=== PATIENT | female | born 1960 | race Caucasian/White ===

== ENCOUNTER 2022-05-17 12:30 | Outpatient (RCR) | payer OTHER, SELFPAY ==
--- NOTE | 2022-03-02 13:32 | HP.PTEVAL_ITS ---
Patient's Visit Information DIANNE BAZAN is a 61 year old F referred to Physical Therapy by MARKELL HARO with a diagnosis of LUMBAR DDD. Date of Evaluation: 03/02/22 Physical Therapist: Madelyn De La Cruz PT, Cert MDT - Visit Plan Frequency: 2-3x /Week Duration: 4-6 Weeks Plan: AQUATIC THERAPY FOR PAIN RELIEF, POSTURE CORRECTION/STRENGTHENING, INSTRUCTION IN APPROPRIATE BODY MECHANICS AND ACTIVITY MODIFICATIONS. DLS STARTING WITH A NEUTRAL SPINE PROGRESSING ROM TOLERATED. KAILASH LE ROM, STRETCHING AND STRENGTHENING. HEP INSTRUCTION. - Subjective Work/Leisure: WORKS FOR [employer] AND IN THE [employer]. Present symptoms: PATIENT REPORTS SHE FEELS REALLY TIGHT IN HER BACK AND HIPS. INTERMITTENT LBP. PATIENT DENIES KAILASH LE PAIN, NUMBNESS AND TINGLING. Present since: ABOUT 15 YEARS AGO OR MORE. Pain Scale: WORSE 4/10, LEAST 0/10. Currently: 0/10. Commenced as a result of: NO APPARENT REASON. Symptoms at onset: LOW BACK PAIN. Worse: PUTTING SHOES ON IN SITTING. ANYTHING BENDING OVER LIKE TO PICK SOMETHING UP OFF THE FLOOR. LIFTING - TRIED LIFTING HALF OF A MILK CRATE (FULL IS 50 X 8OZ) AGAIN TODAY AND GOT A LOT OF BACK PAIN. Better: SITTING STRAIGHT UP WITH BACK SUPPORT OR LYING DOWN. Disturbed sleep: NO. Previous history/Previous treatment: MOSTLY SELF TREATED PRIOR TO BACK SURGERY. PRIOR TO SX COULDN'T STAND OR WALK AND BOTH FEET WERE NUMB AND RIGHT LE ALWAYS NUMB. Treatment this episode: OCT [address] HARO. STARTED PT END OF OCTOBER AT [facility] 2X'S A WK X 4 WKS UNTIL END OF NOVEMBER. PATIENT REPORTS SHE THINKS HER THERAPY WAS TOO EASY AND IN AND JANUARY SHE REALLY DIDN'T DO A LOT. SHE REPORTS SHE CALLED HER SURGEON RECENTLY AND ASKED FOR MORE PT TO TRY TO GET STRONGER AND MORE FLEXIBLE. Coughing/sneezing/straining: NEGATIVE. Gait: NORMAL. Bowel or Bladder Dysfunction: NO. Accidents: NO. Unexplained weight loss: NO. Imaging: PATIENT REPORTS THAT FOLLOW UP X-RAYS AFTER SURGERY LOOKED GOOD. PMH/Recent major surgery: HYPOTHYROIDISM, KAILASH KNEE MENISCUS SX'S. OTHER: RESTRICTIONS: NO LIFTING > 25 LBS. AVOID unnecessary BENDING. - Objective Sitting/Standing Posture: POOR. SLOUCHED. ABLE TO PARTIALLY CORRECT POSTURE BUT NOT MAINTAIN. Active Correction of posture: WORSE. Other Observations: INDEP GAIT. INDEP TRANSFERS SIT TO STAND WITHOUT UE ASSIST. Sensory deficit: KAILASH LE LIGHT TOUCH SENSATION IS GROSSLY INTACT AND SYMMETRICAL. ROM deficit: TIGHT KAILASH HIP ROTATORS, HIP FLEXORS, HS'S AND GASTROC SOLEUS COMPLEX'S. Motor deficit: KAILASH LE'S 5/5 EXCEPT HIPS 4/5. Reflexes: UNABLE TO ELICIT RIGHT LE DTR'S. LLE 2/3. Dural Signs: NEGATIVE KAILASH LE'S. Lumbar mvmt loss: flex - MOD. ext - CARMEN. R SG - MOD. L SG - MOD. PATIENT COMPLAINT OF INCREASED LOW BACK PAIN WITH LUMBAR ROM TESTING ALL PLANES ESPECIALLY FORWARD BENDING. Core strength: POOR. Palpation: TENDERNESS AND INCREASED MUSCLE TONE THROUGHOUT LUMBAR REGIONS. NO ACUTE HIP OR BUTTOCK TENDERNESS. TREATMENT: NEUROMUSCULAR REEDUCATION - RETRAINING OF MVMT AND POSTURE FOR SITTING, LYING AND STANDING ACTIVITIES. - Balance/Special Test Scores Oswestry Low Back Score: 8 - Goals Goal 1:: DECREASE C/O LOW BACK AND KAILASH LE SX'S. Goal Time Frame: 4-6 Weeks Goal 2:: IMPROVE LIFTING, SITTING, STANDING, AND WORK/HOMEMAKING FUNCTION Goal Time Frame: 4-6 Weeks Goal 3:: INSTRUCT IN PROPHYLAXIS Goal Time Frame: 4-6 Weeks - Anticipated Interventions Patient/Client Instruction: Educate patient on: Condition, Plan of Care, Risk Factors For the Purpose of:: To improve self management Therapeutic Exercise to Include: Strength training, Body mechanics, Postural training, Neuromotor development, Dynamic Lumbar Stabilization For the Purpose of:: To decrease pain, To improve muscle performance and motor function, To increase tolerance to activity/condition/position, To improve ability of physical actions for home/community/work/leisure Thank you for the opportunity to evaluate your patient. For Medicare and Medicare HMO plans, please review the plan of care and approve it. It will need to be FAXED BACK to us at [phone] for Medicare purposes. For Medicare only, by signing this I certify the plan of care. Please let me know if there are questions or concerns regarding this plan of care. Physician Signature: Date:
--- NOTE | 2022-03-23 14:04 | HP.PTREVAL_ITS ---
MARKELL HARO, It has been my pleasure to treat DIANNE BAZAN over the last 10 visits for LUMBAR DDD. Please see the progress note below for an update on the physical therapy plan of care! Subjective: PATIENT REPORTS SHE IS improving BUT SHE FEELS LIKE SHE HAS A LONG WAY TO GO. SHE REPORTS SHE IS WALKING MORE AND IT FLARES UP HER RIGHT LBP. PATIENT REPROTS SHE IS FEELING MORE MOBILE. SHE STATES SHE ISN'T STIFF WHEN SHE WALKS AND TURNS AND IS JUST FEELING MORE LIKE HER SELF AND needing to be LESS cautious. Objective/Function: PATIENT WAS SEEN TODAY FOR RE-ASSESSMENT OF PROGRESS TOWARD THE SET PT GOALS AND THE NEED FOR FURTHER PHYSICAL THERAPY VS READINESS FOR DISCHARGE. PATIENT IS MAKING SLOW PROGRESS WITH PT AND IS. A GOOD CANDIDATE TO CONTINUE AQUATIC THERAPY BASED ON PROGRESS MADE AND ROOM FOR FUTHER IMPROVMENT. PATIENT IS AGREEABLE. UPON EXAM TODAY: Lumbar mvmt loss: flex - MOD. ext - Mod. R SG - MOD. L SG - MOD. Other: KAILASH HIPS ARE STILL VERY TIGHT RIGHT > LEFT AND TESTING HIP ROM PROVOKES PAIN IN GROIN AND LATERAL HIP REGIONS. PATIENT TOLERATED NEW STRETCHES WELL BUT NEEDED A LOT OF CUEING TO DO IN PAINFREE ROM. Plan Plan: CONTINUE 3X'S A WK X 10 VISITS: AQUATIC THERAPY FOR PAIN RELIEF, POSTURE CORRECTION/STRENGTHENING, INSTRUCTION IN APPROPRIATE BODY MECHANICS AND ACTIVITY MODIFICATIONS. DLS STARTING WITH A NEUTRAL SPINE PROGRESSING ROM TOLERATED. KAILASH LE ROM, STRETCHING AND STRENGTHENING. HEP INSTRUCTION. [ End ] Balance/Gait/Functional tests - Balance/Special Test Scores Oswestry Low Back Score: 6 Goals Goal 1:: DECREASE C/O LOW BACK AND KAILASH LE SX'S. Goal Time Frame: 4-6 Weeks Goal Progress: Progressing Goal 2:: IMPROVE LIFTING, SITTING, STANDING, AND WORK/HOMEMAKING FUNCTION Goal Time Frame: 4-6 Weeks Goal Progress: Progressing Goal 3:: INSTRUCT IN PROPHYLAXIS Goal Time Frame: 4-6 Weeks Goal Progress: Progressing Anticipated Interventions Patient/Client Instruction: Educate patient on: Condition, Plan of Care, Risk Factors For the Purpose of:: To improve self management Therapeutic Exercise to Include: Strength training, Body mechanics, Postural training, Neuromotor development, Dynamic Lumbar Stabilization For the Purpose of:: To decrease pain, To improve muscle performance and motor function, To increase tolerance to activity/condition/position, To improve ability of physical actions for home/community/work/leisure Please do not hesitate to contact me at [phone] by phone or Fax: if you have questions or concerns regarding this new plan of care! Sincerely, Madelyn De La Cruz PT, Cert MDT
--- NOTE | 2022-04-20 14:33 | HP.PTREVAL ---
MARKELL HARO, It has been my pleasure to treat DIANNE BAZAN over the last 17 visits for LUMBAR DDD. Please see the progress note below for an update on the physical therapy plan of care! Subjective: WORKING [employer] FULL DUTY AND HAS NOT MISSED ANY WORK. PATIENT REPORTS SHE WAS DOING REALLY WELL UNTIL HER SON MOVED ABOUT 2 WKS AGO. SHE REPORTS SHE WAS DOING SOME CLEANING FOR HIM THAT INVOLVED BENDING AND REACHING AND EVEN GETTING DOWN ON HER KNEES. SHE REPORTS SHE COULD REALLY FEEL IT THAT FOLLOWING WEEK BUT IT SETTLED BACK DOWN AGAIN BUT NOT COMPLETELY. FOLLOW UP PENDING WITH SURGEON 04/27/22 (DR. HARO AT [facility]). PATIENT FEELS LIKE THE POOL IS REALLY HELPING. STATES SHE FEELS GOOD DURING AND AFTER THE EX SESSIONS. REPORTS SHE HAS REALLY INCREASED HER WALKING WITHOUT INCREASED PAIN. WALKING ABOUT 45 MIN A DAY NOW AND STATES SHE COULD BARELY WALK AT ALL BEFORE SURGERY. Objective/Function: PATIENT WAS SEEN TODAY FOR RE-ASSESSMENT OF PROGRESS TOWARD THE SET PT GOALS AND THE NEED FOR FURTHER PHYSICAL THERAPY VS READINESS FOR DISCHARGE. PATIENT IS MAKING GOOD PROGRESS TOWARD ALL PT GOALS AND IS A GOOD CANDIDATE TO CONTINUE PT BASED ON PROGRESS MADE AND ROOM FOR FURTHER IMPROVEMENT. PATIENT IS AGREEABLE. UPON EXAM TODAY: LUMBAR MVMT LOSS: FLEX - MOD. EXT - MOD. R SG - MOD. L SG - MOD. NO INCREASED LASTING PAIN WITH LUMBAR ROM TESTING ALL PLANES TODAY BUT PATIENT REPORTS INCRASED PAIN WITH MVMT ALL PLANES. KAILASH HIPS ARE STILL VERY TIGHT RIGHT > LEFT AND TESTING HIP ROM PROVOKES PAIN IN GROIN AND LATERAL HIP REGIONS. Plan Plan: CONTINUE PT TRANSITIONING FROM WATER TO LAND 2X'S A WK X 4-6 WKS FOR PAIN RELIEF, POSTURE CORRECTION/STRENGTHENING, EMPHASIS ON APPROPRIATE BODY MECHANICS AND ACTIVITY MODIFICATIONS. DLS STARTING WITH A NEUTRAL SPINE AND LUMBAR ROM TOLERATED. KAILASH LE ROM, STRETCHING AND STRENGTHENING. HEP INSTRUCTION. [ End ] Balance/Gait/Functional tests - Balance/Special Test Scores Oswestry Low Back Score: 8 Goals Goal 1:: DECREASE C/O LOW BACK AND KAILASH LE SX'S. Goal Time Frame: 4-6 Weeks Goal Progress: Progressing Goal 2:: IMPROVE LIFTING, SITTING, STANDING, AND WORK/HOMEMAKING FUNCTION Goal Time Frame: 4-6 Weeks Goal Progress: Progressing Goal 3:: INSTRUCT IN PROPHYLAXIS Goal Time Frame: 4-6 Weeks Goal Progress: Progressing Anticipated Interventions Patient/Client Instruction: Educate patient on: Condition, Plan of Care, Risk Factors For the Purpose of:: To improve self management Therapeutic Exercise to Include: Strength training, Body mechanics, Postural training, Neuromotor development, Dynamic Lumbar Stabilization For the Purpose of:: To decrease pain, To improve muscle performance and motor function, To increase tolerance to activity/condition/position, To improve ability of physical actions for home/community/work/leisure Please do not hesitate to contact me at [phone] by phone or if you have questions or concerns regarding this new plan of care! Sincerely, Madelyn De La Cruz, PT, Cert MDT
--- NOTE | 2022-05-17 12:59 | HP.PTDCSUM ---
It has been my pleasure to treat DIANNE BAZAN referred by MARKELL HARO, with the diagnosis of LUMBAR DDD for a total of 22 visit(s). Discharge Date: 05/17/22 Please see the following information for a summary of their discharge status. Subjective: PATIENT REPORTS HER RIGHT HIP/GROIN PAIN IS ALMOST GONE. I FEEL STRONGER AND THIS HAS DONE GREAT FOR ME. PATIENT REPORTS HER SURGICAL FOLLOW UP ABOUT 2 WKS AGO WENT WELL AND ALL OF HER RESTRICTIONS WERE LIFTED. Right LE Pain Intensity (Out of 10): 0 Low back Pain Intensity (Out of 10): 0 % Improvement: 90 Objective/Function: PATIENT WAS SEEN TODAY FOR RE-ASSESSMENT OF PROGRESS TOWARD THE SET PT GOALS AND THE NEED FOR FURTHER PHYSICAL THERAPY VS READINESS FOR DISCHARGE. ALL GOALS HAVE BEEN MET AND PATIENT IS APPROPRIATE FOR DISCHARGE TO [facility]. PATIENT IS AGREEABLE. UPON EXAM TODAY: Lumbar mvmt loss: flex - MOD. ext - Mod. R SG - MOD. L SG - MOD. Other: PATIENT CONTINUES TO HAVE KAILASH HIP TIGHTNESS BUT NO PAIN WITH TESTING TODAY AND PATIENT COMMUNICATES A GOOD UNDERSTANDING OF HOME STRETCHING AND REPOTS IT IS HELPING. PATIENT ALSO CONTINUES TO HAVE LB TIGHTNESS ALL PLANES BUT NO PAIN WITH TESTING TODAY AND IS TOLERATING STRETCHING WELL. CORE STRENGTH - FAIR Goal 1:: DECREASE C/O LOW BACK AND KAILASH LE SX'S. Goal Progress: Goal Met Goal 2:: IMPROVE LIFTING, SITTING, STANDING, AND WORK/HOMEMAKING FUNCTION Goal Progress: Goal Met Goal 3:: INSTRUCT IN PROPHYLAXIS Goal Progress: Goal Met Plan: 2X'S A WK X 4-6 WKS FOR PAIN RELIEF, POSTURE CORRECTION/STRENGTHENING, EMPHASIS ON APPROPRIATE BODY MECHANICS AND ACTIVITY MODIFICATIONS. DLS STARTING WITH A NEUTRAL SPINE AND LUMBAR ROM TOLERATED. KAILASH LE ROM, STRETCHING AND STRENGTHENING. HEP INSTRUCTION. [ End ] If there are questions or concerns regarding this patient's physical therapy, please feel free to call me at [phone]. Thank you for the referral of this patient. Sincerely, Madelyn De La Cruz, PT, Cert MDT Balance/Gait/Functional tests - Balance/Special Test Scores Oswestry Low Back Score: 0
== END 2022-05-17 19:00 | disposition home or self-care (01) ==
LOC: PT 12:30
PROVIDERS: PCP Nurse Practitioner Family
DX: M51.36 Other intervertebral disc degeneration, lumbar region (principal)
CPT/HCPCS: 97110; 97112; 97113; 97162; 97164; 97530

== ENCOUNTER → 2022-07-20 | Outpatient (CLI) | payer OTHER, SELFPAY ==
[2022-07-20 13:34] LABS: Anion Gap 8 (5-15); BUN 14 mg/dL (7-18); BUN/Creat Ratio 16.1 RATIO (10-20); Calcium,Total 9.8 mg/dL (8.5-10.1); Chloride 103 mmol/L (98-107); Creatinine, Serum 0.87 mg/dL (0.55-1.02); EST Glomerular Filtration Rate 71 mL/min (>60); Est Glom Filt Rate - Afr Amer 86 mL/min (>60); Glucose 125 mg/dL (74-106); Potassium 3.7 mmol/L (3.5-5.1); Sodium Level 141 mmol/L (136-145)
== END | disposition home or self-care (01) ==
LOC: LAB 12:44
PROVIDERS: PCP Nurse Practitioner Family; Visit Provider Physician Assistant Medical
DX: I47.1 Supraventricular tachycardia (principal)
CPT/HCPCS: 36415; 80048

== ENCOUNTER 2022-08-10 09:00 | Day surgery (SDC) | payer OTHER, SELFPAY ==
[2022-08-09 08:50] VITALS: BMI 35.8
--- NOTE | 2022-08-09 17:03 | HP.PCM_ITS ---
History and Physical Date of Admission: 08/10/22 Katherine Ledesma is a 61-year-old female with a history of supraventricular tachyarrhythmia.? She had presented in June 2019 with a narrow complex tachycardia which was noted to be a supraventricular tachycardia.? Vagal maneuvers did terminate this.? She was put on a beta-elisabeth and she has tolerated this.? During her OV in January 2020 she noted she has had a few episodes SVT with the longest lasting approximately 3 hours.? She tried all her maneuvers but there was no improvement. She was referred to EP. She did not pursue this d/t her concerns over the procedure. She was last in to see us in 05/2020. Pt notes that her palpitations when she was last in to see us were not a concern but have gradually resumed and have progressed.? She did talk to her PCP about this.? He did obtain an echo, this did demonstrate normal LV size with an estimated ejection fraction of 60 to 65%.? Wall motion normal with no regional wall motion abnormalities.? Normal diastolic function.? Mild aortic regurgitation.? RVSP 32 mmHg.? Pt sts her palpitations were doing okay until April.? She notes that her heart is racing and irregular.? She had a HM done at PCP office. HM did demonstrate 15 short runs of SVT, with 4% PACs and rare PVCs.? Patient would not like to pursue an EP referral for possible ablation. Allergies penicillin V Allergy (Verified 07/04/22 11:15) Hives Medications levothyroxine 137 mcg tablet 137 mcg PO DAILY 02/06/20 [History Confirmed 07/04/22] metoprolol succinate 50 mg tablet,extended release 24 hr 50 mg PO DAILY #60 tabs 02/06/20 [Rx Confirmed 07/04/22] multivitamin (Daily Multi-Vitamin tablet) 1 tab PO DAILY 06/15/20 [History Confirmed 07/04/22] PFSH Medical History? Anxiety and depression Hypothyroidism Obesity Paroxysmal supraventricular tachycardia Psoriasiform dermatitis Surgical History? History of History of carpal tunnel release History of hysterectomy History of knee surgery Family History? Father?? Heart disease ?? ? age 65 Social History?(Updated 06/15/20 @ 11:12 by Felicia LEE, PA) Smoking Status:? Never smoker ROS Const Const: Negative for fatigue, weakness, headache(s), frequent falls, excessive sweating, weight gain or weight loss Eyes Eyes: Negative for blind spots, loss of peripheral vision, transient loss of vision, blurry vision, change in vision or double vision ENT ENT: Negative for headache(s), dizziness, tinnitus, Nosebleed/epistaxis or balance problems Cardio Chest Pain: No Palpitations: Yes Edema: None Muscle aches with walking: None Resp Respiratory: Negative for SOB with activity, SOB at rest, SOB orthopnea\SOB lying down or Cough GI GI: Negative nausea, vomiting, heartburn, bloating, vomiting blood/hematemesis, bright, red blood in stools or black,tarry stools : Negative for hematuria Musc Musc: Negative for muscle aches/ myalgia, muscle weakness, joint pain or balance problems Skin Skin: Negative rash or wounds Neuro Neuro: Negative for dizziness, lightheadedness, near syncope, syncope, orthosta tic symptoms, frequent falls, headache(s), weakness, confusion, memory loss, restless legs, blurry vision or double vision Lon Hematologic/Lymphatic: Negative for easy bleeding or easy bruising Endo Endo: Negative for fatigue, cold intolerance, heat intolerance or excessive sweating Psych Psych: Negative for anxiety or depression Allergy Allergy/Immunology: Negative for rash Cardiology Exam Const Appearance: cooperative, healthy appearing, comfortable, no acute distress and well developed Orientation: alert, awake and oriented x3 Head Head: normal to inspection Ears: hearing grossly normal bilaterally Nose: external nose normal Face and Sinus: face symmetric Mouth: oral mucosae normal, lip normal and moist mucous membranes Eyes General: appearance normal, both eyes and all related structures Eyelids: eyelids normal Conjunctivae: conjunctivae normal Pupils: PERRL EOM: EOM intact bilaterally Neck Neck: normal visual inspection and trachea midline; Negative no JVD Carotids: Negative bruit Chest Chest inspection: normal inspection of the chest Auscultation: Bilateral: Clear to Auscultation Cardio Palpation: normal PMI Rate: regular rate Rhythm: regular rhythm Heart sounds: S1 normal and S2 normal; Negative rub, gallop or murmur GI GI: soft, no hepatosplenomegaly and bowel sounds present Neuro General: patient alert, patient awake, patient oriented x3 and CN's II-XI intact bilaterally Extremities Pulses: Normal: Right Posterior Tibial Pulse, Left Posterior Tibial Pulse, Right Radial Pulse and Left Radial Pulse Lower Extremity Edema: None: Bilateral Psych Psychological: normal affect Assessment & Plan Assessment/Plan (1) Paroxysmal supraventricular tachycardia: PLAN: Pt will undergo ablation, f/u will be based on findings.
[2022-08-10 09:24] LABS: Hematocrit 43.8 % (37-47); Hemoglobin 14.3 g/dL (12.0-15.0); Mean Corp Hgb Conc 32.6 g/dL (32-36); Mean Corpuscular Hgb 29.8 pg (27.0-32.0); Mean Corpuscular Volume 91.3 fL (81-99); Mean Platelet Vol. 9.3 fl (6.2-12.0); Platelet Count 248 K/mm3 (150-450); RBC Distribution Width CV 12.6 % (11.6-14.6); RBC Distribution Width SD 42.1 fl (35.1-43.9); White Blood Count 6.4 K/mm3 (4.4-11.0)
--- NOTE | 2022-08-10 12:55 | EX.ELECTROPH ---
Electrophysiology Report Electrophysiology Report Patient has a history of recurrent narrow complex tachycardia and here for catheter ablation. 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 After informed consent the right groin was prepped and draped in usual sterile manner, 1% lidocaine as well as intermittent boluses of Versed and fentanyl were used for sedation and analgesia. A 12 [place] Tri-Port was inserted in the femoral vein using the Seldinger technique through that sheath a 4 [place] catheter was placed in the high right atrium 1 was placed in the right ventricle and a 5 [place] deflectable catheter was placed in the his bundle region. The rhythm was sinus with a RI of 160 QRS of 85 and QT of 340. Sinus cycle length was 820 AH is 70 HV is 40 maximum SNRT is 1130C SNRT is 290 AV block cycle length is 390 VA block cycle length is 340 there is decremental and concentric retrograde conduction. There is no evidence of preexcitation. The AV node effective refractory period is 280 at 600 with dual AV node physiology Isuprel was then infused at 3 mics and then 5 mcg/min. Sinus cycle length is 480 AH is 55 HV is 4 0 AV block cycle length is 260 VA block cycle length is 240 there is decremental and concentric retrograde conduction the AV node effective refractory period is 220 at 450. There is no Duley AV node physiology. In the baseline state and during Isuprel both at 3 mcg and 5 mcg there is no inducible tachycardia. Given the documentation of a narrow complex tachycardia consistent with typical AV rayray reentrant tachycardia in the absence of any evidence for an accessory pathway I proceeded with an empiric slow pathway ablation using temperatur titration with 4mm tip. Mapping and pacing were completed from the CS os. I achieved junctional beats and at the end of the procedure there is no further dual AV node physiology. There were no complications. The patient was followed clinically through the [facility]. Sheaths were removed and hemostasis was obtained. There were no complications.
== END 2022-08-10 16:19 | disposition home or self-care (01) ==
PROVIDERS: PCP Nurse Practitioner Family; Referring Provider Internal Medicine Cardiovascular Disease; Visit Provider Internal Medicine Cardiovascular Disease
DX: I47.1 Supraventricular tachycardia (principal); E03.9 Hypothyroidism, unspecified
CPT/HCPCS: 36415; 85027; 93609; 93621; 93623; 93653; 99152; 99153; C1730; C1733; C1894; A4216

== ENCOUNTER 2024-08-22 09:30 | Outpatient (RCR) | payer OTHER, SELFPAY ==
--- NOTE | 2024-07-28 19:21 | HP.PTEVAL_ITS ---
Patient's Visit Information Visit Information Visit Information: DIANNE BAZAN is a 63 year old F referred to Physical Therapy by MARKELL HARO with a diagnosis of CERVICAL DDD AND RADICULOPATHY. Date of Evaluation: 07/25/24 Physical Therapist: Madelyn De La Cruz PT, Cert MDT Visit Plan Frequency: 2-3x /Week Duration: 4-6 Weeks Plan: MODALITIES NEEDED FOR PAIN AND INFLAMMATION. IF RESPONDS TO MANUAL TRACTION CONSIDER MECHANICAL. POSTURE CORRECTION/STRENGTHENING, INSTRUCTION IN APPROPRIATE BODY MECHANICS AND ACTIVITY MODIFICATIONS. KAILASH UE ROM, STRETCHING AND STRENGTHENING. HEP INSTRUCTION. Subjective Subjective: Work/Leisure: [employer] AND [employer] DES[employer] Present symptoms: LEFT NECK, SHLD AND SHLD BLADE PAIN. PATIENT DENIES R NECK, R UE AND KAILASH UE NUMBNESS AND TINGLING SYMPTOMS. Present since: 06/09/24 Getting Better, Getting Worse or Staying the Same: STAYING THE SAME Pain Scale: Worst - 6/10 Least - 0/10 Currently: 0/10 Commenced as a result of: NO APPARENT REASON Symptoms at onset: WOKE UP WITH A STIFF NECK AND THE DAY PROGRESSED WAS IN A LOT OF PAIN AND COULDN'T TURN NECK TO THE LEFT. BY THE NEXT DAY COULDN'T TURN HEAD TO THE LEFT AT ALL AND CALLED OFF WORK. TIME PROGRESSED THE PAIN GOT WORSE AND M. SPASMS DEVELOPED ALONG WITH SEVERE HEADACHE SO WENT TO PCP SUNDAY. WAS PRESCRIBED M. RELAXER, IBUPROFEN AND IBUPROFEN - M. SPASMS WENT AWAY AND WAS SLOWLY ABLE TO TURN HEAD TO THE LEFT. 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 STILL HAD TO TURN WHOLE BODY TO LOOK TO LEFT AT SOME CROSS-ROADS. Worse: TURNING HEAD TO THE LEFT, LIFTING, READING A BOOK Better: KEEPING HEAD STRAIGHT, GOOD POSTURE, ICE, STEROID - NE SO FAR, M. RELAXERS HELPED. IBUPROFEN Disturbed sleep: NO Previous history/Previous treatment: INTERMITTENT L NECK PAIN AND STIFFNESS FOR YEARS - TREATED WITH CHIROPRACTIC FOR ABOUT 12 YEARS OFF AND ON NEEDED. NO NECK INJECTIONS OR NECK SURGERY. INTERMITTENT NECK MASSAGES. This episode: SEE ABOVE AND DR. HARO CONSULT 07/22/24 - PRESCRIBED STEROID MAMI - 3 DAYS LEFT. ORDERED PT. WILL DO MRI IF NOT BETTER IN 4 WKS. Dizziness: NO Tinnitus: NO Nausea: NO Shortness of Breath: NO Difficulty Swallowing: NO Gait: NORMAL Accidents: NO Unexplained weight loss: NO Imaging: X-RAYS AT [facility] THIS WEEK: ARTHRITIS AND A LOT OF DEGENERATIVE DISC. PER PATIENT REPORT. PMH/Recent major surgery: LUMBAR FUSION 2021. KAILASH KNEE MENISCUS SX'S. Objective Objective: Sitting Posture/Standing Posture: FH. RSH'S. NO TORTICOLLIS Active Correction of posture: BETTER. ABLE TO CORRECT BUT DOES NOT MAINTAIN. Other Observations: INDEP GAIT AND TRANSFERS Sensory deficit: KAILASH UE LIGHT TOUCH SENSATION GROSSLY INTACT AND SYMMETRICAL ROM deficit: KAILASH SHLD TIGHTNESS. R SHLD FLEX 146 DEG, L 140 DEG IN SITTING. Motor deficit: KAILASH UE STRENGTH GROSSLY 5/5 WITH MMT'ING EXCEPT R SHLD 4/5, L SHLD 4-/5 AND WITH R CLERK TELEGRAPH SERVICE 60 LBS AND L 38 LBS. RIGHT HAND DOMINANT. Reflexes: KAILASH UE DTR'S 2+ Dural Signs: POSITIVE L UE Cervical Mvmt Loss: Flex: NIL - P KAILASH NECK L>R - NW Pro: NIL Ext: MOD TO CARMEN - INCREASES L NECK - W Ret: CARMEN - INCREASES L NECK, P L SHLD - NW RSB: MOD - INCREASES L NECK AND SHLD - NW LSB: CARMEN - INCREASES L NECK AND SHLD - W R Rot: MIN - NE L Rot: MOD - INCREASES L NECK AND L SHLD - W OTHER: SEATED CERVICAL DISTRACTION: DECREASES PAIN - NB/NW Postural strength: FAIR Palpation: TENDERNESS AND INCREASED MUSCLE TONE L UPPER AND MIDDLE TRAPS. TENDERNESS TREATMENT: NEUROMUSCULAR REEDUCATION - RETRAINING OF MVMT AND POSTURE FOR SITTING, LYING AND STANDING ACTIVITIES. Balance/Special Test Scores Oswestry Neck Score: 11 Goals Goal 1:: DECREASE C/O L NECK AND SHLD PAIN BY AT LEAST 75% TO EASE ADL AND WORK FUNCTION. Goal Time Frame: 4-6 Weeks Goal 2:: IMPROVE HEAD TURNING, LIFTING, READING, DRIVING AND REACREATIONAL FUNCTION WITH AT LEAST 5 POINT IMPROVEMENT IN NECK OSWESTRY SCORE. Goal Time Frame: 4-6 Weeks Goal 3:: INDEP HEP Goal Time Frame: 4-6 Weeks Rehabilitation Potential Physical Therapy Diagnosis: POSTURAL, NECK AND KAILASH UE L>R STIFFNESS AND WEAKNESS Rehabilitation Potential: Good Anticipated Interventions Patient/Client Instruction: Educate patient on: Condition, Plan of Care and Risk Factors For the Purpose of:: To improve self management Therapeutic Exercise to Include: Strength training, Postural training, Flexibilty training, Neuromotor development, Passive ROM, Active ROM and Scapular Strength/Stabilization For the Purpose of:: To decrease pain, To increase ROM, To improve muscle performance and motor function, To increase tolerance to activity/condition/position, To improve ability of physical actions for home/community/work/leisure and To increase flexibility/ROM Manual Therapy Techniques to Include: Trigger point massage, Mobilization and Soft tissue mobilization For the Purpose of:: To decrease pain, To increase ROM and To improve nutrient delivery to tissue TENS: Yes IF ES: Yes Cryotherapy (ice pack, ice massage): Yes Thermo therapy (hot pack): Yes Ultrasound (thermal/non thermal): Yes Intermittent cervical traction: Yes For the Purpose of:: To decrease pain and To improve nutrient delivery to tissue Text: Thank you for the opportunity to evaluate your patient. For Medicare and Medicare HMO plans, please review the plan of care and approve it. It will need to be FAXED BACK to us at [phone] for Medicare purposes. For Medicare only, by signing this I certify the plan of care. Please let me know if there are questions or concerns regarding this plan of care. Physician Signature: Date:
--- NOTE | 2024-12-24 09:02 | HP.PTDCNRP_ITS ---
Patient Information Patient Information: DIANNE BAZAN was seen in my office for initial evaluation on 07/25/24. The following Plan of Care was established for this patient: POC Established Initial Frequency: 2-3x /Week Initial Duration: 4-6 Weeks Anticipated Interventions Patient/Client Instruction: Educate patient on: Condition, Plan of Care and Risk Factors For the Purpose of:: To improve self management Therapeutic Exercise to Include: Strength training, Postural training, Flexibilty training, Neuromotor development, Passive ROM, Active ROM and Scapular Strength/Stabilization For the Purpose of:: To decrease pain, To increase ROM, To improve muscle performance and motor function, To increase tolerance to acti vity/condition/position, To improve ability of physical actions for home/community/work/leisure and To increase flexibility/ROM Manual Therapy Techniques to Include: Trigger point massage, Mobilization and Soft tissue mobilization For the Purpose of:: To decrease pain, To increase ROM and To improve nutrient delivery to tissue TENS: Yes IF ES: Yes Cryotherapy (ice pack, ice massage): Yes Thermo therapy (hot pack): Yes Ultrasound (thermal/non thermal): Yes Intermittent cervical traction: Yes For the Purpose of:: To decrease pain and To improve nutrient delivery to tissue Last Seen Last Seen: This patient was last seen in our office 08/22/24. Pertinent comments regarding their Physical therapy will appear below: It has been my pleasure to see this patient for a total of 12 visits. This patient has not returned to Physical Therapy for more visits and is appropriate to return to MD for further follow-up as needed. At this point I will be discontinuing this patient from physical therapy. I would be happy to see this patient again in the future if found appropriate by the physician. Thank you! Madelyn De La Cruz, PT, Cert MDT Balance/Gait/Functional tests Balance/Special Test Scores Oswestry Neck Score: 7
== END 2024-08-22 19:00 | disposition home or self-care (01) ==
LOC: PT 09:30
PROVIDERS: PCP Nurse Practitioner Family
DX: M50.30 Other cervical disc degeneration, unspecified cervical region (principal); M54.2 Cervicalgia; M54.12 Radiculopathy, cervical region
CPT/HCPCS: 97012; 97035; 97110; 97140; 97162; 97530